=== PATIENT | male | born 1970 | race Caucasian/White ===

== ENCOUNTER 2018-04-22 08:58 | Emergency (ER) | payer MEDICAID ==
[~2018-04-22] VITALS: Ht 170.2 cm; Wt 111.2 kg
[2018-04-22 09:10] VITALS: BP 150/97
[2018-04-22] MEDS ORDERED: KETOROLAC 60 MG/2 ML VIAL IM ONE (09:25)
[2018-04-22 09:42] VITALS: BP 140/99
== END 2018-04-22 09:41 | disposition home or self-care (01) ==
LOC: MED 08:58
DX: M54.2 Cervicalgia (principal); M54.9 Dorsalgia, unspecified; F17.200 Nicotine dependence, unspecified, uncomplicated
CPT/HCPCS: 96372; 99283; J1885